=== PATIENT | male | born 1980 | race Caucasian/White ===

== ENCOUNTER 2023-09-23 08:10 | Emergency (ER) | payer OTHER ==
[~2023-09-23] VITALS: Ht 162.6 cm; Wt 94.5 kg
[2023-09-23 08:30] VITALS: BP 165/101; PULSE 77; RESP 16; TEMP 97.1; O2SAT 97
[2023-09-23 08:50] VITALS: O2SAT 97
[2023-09-23 09:38] LABS: BASOPHILS % (AUTO) 0.3 % (0.0-2.0); EOSINOPHILS % (AUTO) 0.3 % (0.0-4.0); HEMATOCRIT 45.1 % (36-52); HEMOGLOBIN 15.6 g/dL (12.0-18.0); LYMPHOCYTES # (AUTO) 1.8 K/uL (2.0-11.5); MEAN CORPUSCULAR HEMOGLOBIN 32 pg (27-31); MEAN CORPUSCULAR HGB CONC 35 g/dL (33-37); MONOCYTES # (AUTO) 0.5 K/uL (0.8-1.0); NEUTROPHILS # (AUTO) 7.2 K/uL (1.8-7.7); NEUTROPHILS % (AUTO) 75.4 % (42.2-75.2); PLATELET COUNT (AUTO) 324 K/uL (140-450); RED CELL DISTRIBUTION WIDTH 13.9 % (11.6-13.7); WHITE BLOOD COUNT (AUTO) 9.6 K/uL (4.8-10.8)
[2023-09-23 09:56] LABS: ANION GAP 14.9 (8-16); CALCIUM 8.9 mg/dL (8.5-10.1); CARBON DIOXIDE 24.5 mmol/L (21-32); CREATININE 0.8 mg/dL (0.6-1.3); POTASSIUM 3.4 mmol/L (3.5-5.1)
[2023-09-23 10:00] LABS: INR 0.92 (0.8-1.2); PARTIAL THROMBOPLASTIN TIME 27.3 secs (22-35.6); PROTHROMBIN TIME 9.7 secs (10.8-13.4)
[2023-09-23 10:05] LABS: ALANINE AMINOTRANSFERASE 29 U/L (12-78); ALBUMIN 4.1 g/dL (3.4-5.0); ALKALINE PHOSPHATASE 116 U/L (50-136); ASPARTATE AMINOTRANSFERASE 14 U/L (15-37); BILIRUBIN,DIRECT 0.1 mg/dL (0.0-0.3); TOTAL BILIRUBIN 0.6 mg/dL (0.0-1.0); TOTAL PROTEIN, SERUM 8.1 g/dL (6.4-8.2)
[2023-09-23] MEDS: LABETALOL 20 MG/4 ML VIAL IVP ONE (10:51)
[2023-09-23] MEDS ORDERED: LISI-953 PO (11:35)
[2023-09-23] MEDS ORDERED: NAPR-337 PO (11:35)
[2023-09-23] MEDS: KETOROLAC 30 MG/ML VIAL IVP ONE (12:16)
[2023-09-23] MEDS: ONDANSETRON 4 MG/2 ML VIAL IVP ONE (12:17)
[2023-09-23 12:26] VITALS: BP 140/68; PULSE 79; RESP 20; TEMP 97; O2SAT 98
== END 2023-09-23 12:26 | disposition home or self-care (01) ==
LOC: MED 08:10
DX: R51.9 Headache, unspecified (principal); R20.2 Paresthesia of skin; I10 Essential (primary) hypertension; Z79.899 Other long term (current) drug therapy
CPT/HCPCS: 36415; 70450; 71045; 80048; 80076; 82948; 83880; 84484; 85025; 85610; 85730; 93005; 96374; 96375; 99285; J1885; J2405; J3490